=== PATIENT | female | born 1960 | race Caucasian/White ===

== ENCOUNTER 2017-06-11 23:52 | Emergency (ER) | payer OTHER ==
[~2017-06-11] VITALS: Ht 167.6 cm; Wt 82.1 kg
[2017-06-12 04:40] VITALS: BP 147/87
== END 2017-06-12 04:40 | disposition home or self-care (01) ==
LOC: ED 23:52
DX: R51 Headache (principal)
CPT/HCPCS: J1885; J2930; J3010